=== PATIENT | female | born 2000 | race Caucasian/White ===

== ENCOUNTER 2018-05-01 10:20 | Emergency (ER) | payer OTHER ==
[2018-05-01 10:51] VITALS: BP 111/72
--- NOTE | 2018-05-01 11:14 | UC ---
Syncope/New Syncope HPI - HPI Summary HPI Summary: 17-year-old female presents for syncopal episode that occurred approximately 6: 30 this morning. States she she is unsure whether she was sitting or standing in the kitchen when she lost consciousness. Unsure of exact period of time she was unconscious however she reports that her roommates heard her fall and came immediately into the kitchen and found her on the floor awake. She remembers everything up to and immediately after the event. She is reporting a mild left- sided headache. Unsure if she hit her head. States she has had similar episodes in the past. Denies dizziness, vertigo, visual disturbances, neck pain , chest pain, palpitations, abdominal pain, nausea, vomiting, facial droop, difficulty or slurred speech, numbness, tingling, or weakness of extremities, or any other injury. - History Of Current Complaint Chief Complaint: UCHeadInjury Stated Complaint: HEAD INJURY Time Seen by Provider: 05/01/18 11:06 Hx Obtained From: Patient Hx Last Menstrual Period: apr 13 Pain Intensity: 2 - Allergies/Home Medications Allergies/Adverse Reactions: Allergies Allergy/AdvReac Type Severity Reaction Status Date / Time No Known Allergies Allergy Verified 05/01/18 10:42 Home Medications: Home Medications FLUoxetine CAP* [Prozac CAP*] 20 mg PO DAILY 05/01/18 [History Confirmed ] PMH/Surg Hx/FS Hx/Imm Hx Previously Healthy: Yes Psychological History: Depression - Surgical History Surgical History: None - Family History Known Family History: Positive: Non-Contributory - Social History Occupation: Student Lives: Dormitory/Roommates Alcohol Use: Weekly Substance Use Type: None Smoking Status (MU): Never Smoked Tobacco Review of Systems All Other Systems Reviewed And Are Negative: Yes Constitutional: Negative: Fever, Chills Eyes: Negative: Blurred Vision, Diplopia, Photophobia ENT: Positive: Negative Respiratory: Negative: Shortness Of Breath, Cough Cardiovascular: Negative: Palpitations, Chest Pain Gastrointestinal: Negative: Abdominal Pain, Vomiting, Diarrhea, Nausea Genitourinary: Negative: Dysuria, Hematuria, Frequency, Urgency Motor: Negative: Weakness Neurovascular: Negative: Decreased Sensation Musculoskeletal: Negative: Arthralgia, Decreased ROM Neurological: Positive: Headache. Negative: Weakness, Paresthesia, Numbness Psychological: Positive: Negative Is Patient Immunocompromised?: No Physical Exam - Summary Physical Exam Summary: GENERAL APPEARANCE: Well developed, well nourished, alert and cooperative, and appears to be in no acute distress. HEAD: Atraumatic. normocephalic. EYES: PERRL, EOM intact. Vision is grossly intact. EARS: External auditory canals and tympanic membranes clear, hearing grossly intact. NOSE: No nasal discharge. THROAT: Oral cavity and pharynx normal. No inflammation, swelling, exudate, or lesions. Teeth and gingiva in good general condition. NECK: Neck supple, non-tender without lymphadenopathy. CARDIAC: Normal S1 and S2. No S3, S4 or murmurs. Rhythm is regular. There is no peripheral edema, cyanosis or pallor. Extremities are warm and well perfused. Capillary refill is less than 2 seconds. Peripheral pulses intact. LUNGS: Clear to auscultation without rales, rhonchi, wheezing or diminished breath sounds. ABDOMEN: Positive bowel sounds. Soft, nondistended, nontender. No guarding or rebound. No masses or hepatosplenomegally. MUSKULOSKELETAL: ROM intact to all extremities. No joint erythema or tenderness. Normal muscular development. Normal gait. BACK: Examination of the spine reveals normal gait and posture, no spinal deformity or tenderness, decreased range of motion or muscular spasm. NEUROLOGICAL: CN II-XII intact. Strength and sensation symmetric and intact throughout. Reflexes 2+ throughout. Cerebellar testing normal. SKIN: Skin normal color, texture and turgor with no lesions or eruptions. PSYCHIATRIC: The patient was able to demonstrate good judgement and reason, without hallucinations, abnormal affect or abnormal behaviors during the examination. Triage Information Reviewed: Yes Vital Signs: Initial Vital Signs Temp 99.3 F 05/01/18 10:44 Pulse 83 05/01/18 10:44 Resp 16 05/01/18 10:44 BP 111/72 05/01/18 10:44 Pulse Ox 98 05/01/18 10:44 Vital Signs Reviewed: Yes Diagnostics - EKG Cardiac Rate: NL - Rate 77 Cardiac Rhythm: Sinus: Normal Ectopy: None ST Segment: Normal Summary of EKG Findings: NSR without ectopy, BASIM, or T-wave abnormalities. Syncope Course/Dx - Course Course Of Treatment: 17-year-old female presents for syncopal episode that occurred approximately 6:30 this morning. States she she is unsure whether she was sitting or standing in the kitchen when she lost consciousness. Unsure of exact period of time she was unconscious however she reports that her roommates heard her fall and came immediately into the kitchen and found her on the floor awake. She remembers everything up to and immediately after the event. She is reporting a mild left-sided headache. Unsure if she hit her head. States she has had similar episodes in the past. Denies dizziness, vertigo, visual disturbances, neck pain, chest pain, palpitations, abdominal pain, nausea, vomiting, facial droop, difficulty or slurred speech, numbness, tingling, or weakness of extremities, or any other injury. Last menstrual period was April 13, 2018. States she is on oral control and uses condoms consistently. Has not missed any of her doses of her oral control. Afebrile. Vital signs stable. Physical exam was unremarkable. Twelve-lead EKG showed a normal sinus rhythm without ectopy, ST elevations, or T-wave changes. I am recommending that she be further evaluated in the emergency room for syncopal event the ambulance. She is agreeable to evaluation in the emergency room however is electing to go by private vehicle. - Differential Dx/Diagnosis Differential Diagnosis/HQI/PQRI: Dysrhythmia, Seizure, Transient Ischemic Attack , Vasovagal Episode Provider Diagnosis: Syncope and collapse Discharge - Sign-Out/Discharge Documenting (check all that apply): Patient Departure All imaging exams completed and their final reports reviewed: No Studies - Discharge Plan Condition: Stable Disposition: HOME-RECOMMEND TO ED Patient Education Materials: Syncope (ED) Referrals: No Primary Care Phys,NOPCP [Primary Care Provider] - Additional Instructions: Your EKG in the clinic today was normal. Based on your history I am recommending that you be further evaluated in the emergency room. You have elected to go by private vehicle for evaluation. Go directly to the [facility] [place] emergency room for evaluation. - Billing Disposition and Condition Condition: STABLE Disposition: Home-Recommend to ED
== END 2018-05-01 11:42 | disposition home health service (06) ==
LOC: UCEAST 10:20
DX: R55 Syncope and collapse (principal); F32.9 Major depressive disorder, single episode, unspecified; Z79.899 Other long term (current) drug therapy; W19.XXXA Unspecified fall, initial encounter; Y92.000 Kitchen of unspecified non-institutional (private) residence as the place of occurrence of the external cause
CPT/HCPCS: 99202; G0463

== ENCOUNTER 2018-05-01 12:12 | Emergency (ER) | payer OTHER ==
--- NOTE | 2018-05-01 13:46 | ED ---
Syncope/Near Syncope - HPI Summary HPI Summary: A 17 y/o female presents to [facility] with a chief complaint of syncope at 07:00 . Per triage note, "Pt fell in her room at 0700, "I'm not sure what happened, I might have fainted, I don't remember anything but waking up with my roommates next to me" Pt states that when she woke up her head was against the chair. Pt c/o scalp pain to crown of head, though pt states that she picks her scalp." She rates her pain as a 3/10 in severity. She reports that she was walking around her woke up on her own and that her room when all of a sudden she fell and her head was pushed up against a chair. She reports that the floors are carpet and that she hit her head on the carpet. She claims that she woke up by herself, and her roomates were next to her because when she fell they heard a thump and came over. She denies any CP or SOB. She [place] Her LNMP was the first week in April 2018. She denies a chance of . She is on Prozac and gianvi control. - History Of Current Complaint Chief Complaint: EDSyncope Time Seen by Provider: 05/01/18 13:18 Hx Obtained From: Patient Onset/Duration: Sudden Onset, Resolved Timing: Intermittent Episode Lasting - 1 episode Context: Other - Roomates witnessed the patient on the carpet post syncope Activity At Onset: Other - walking Associated Head Trauma: No Aggravating Factor(s): Nothing Alleviating Factor(s): Nothing Associated Signs And Symptoms: Negative - SOB, Chest pain - Allergies/Home Medications Allergies/Adverse Reactions: Allergies Allergy/AdvReac Type Severity Reaction Status Date / Time No Known Allergies Allergy Verified 05/01/18 12:24 Home Medications: Home Medications Eth Estradiol/Drospirenone(NF) [Gianvi (NF)] 1 tab PO DAILY 05/01/18 [History Confirmed 05/01/18] PMH/Surg Hx/FS Hx/Imm Hx Endocrine/Hematology History: Denies: Hx Diabetes Cardiovascular History: Denies: Hx Hypercholesterolemia, Hx Hypertension Neurological History: Reports: Other Neuro Impairments/Disorders - An episode of syncope on a subway Psychiatric History: Reports: Hx Depression - Surgical History Surgery Procedure, Year, and Place: None Infectious Disease History: No Infectious Disease History: Denies: Traveled Outside the [place] in Last 30 Days - Family History Known Family History: Positive: Hypertension, Diabetes - Social History Occupation: Student Lives: Dormitory/Roommates Alcohol Use: Occasionally Substance Use Type: Reports: None Smoking Status (MU): Never Smoked Tobacco Review of Systems Negative: Fever Negative: Chest Pain Negative: Shortness Of Breath Positive: Syncope All Other Systems Reviewed And Are Negative: Yes Physical Exam - Summary Physical Exam Summary: GENERAL: Patient is a well-developed and nourished F who is lying comfortable in the stretcher. Patient is not in any acute respiratory distress. HEAD AND FACE: Normocephalic EYES: PERRLA, EOMI x 2. EARS: Hearing grossly intact. MOUTH: Oropharynx within normal limits. NECK: Supple, trachea is midline, no adenopathy, no JVD, no carotid bruit. CHEST: Symmetric, no tenderness at palpation LUNGS: Clear to auscultation bilaterally. No wheezing or crackles. CVS: Regular rate and rhythm, S1 and S2 present, no murmurs or gallops appreciated. ABDOMEN: Soft, non-tender. Bowel sounds are normal. No abdominal abnormal pulsations. EXTREMITIES: Full ROM in all major joints, no edema, no cyanosis or clubbing. NEURO: Alert and oriented x 3. No acute neurological deficits. Speech is normal and follows commands. SKIN: Dry and warm Neuro exam extended: Cranial nerves II-XII grossly intact, no dysmetria finger to nose, nml heel to rutherford Triage Information Reviewed: Yes Vital Signs On Initial Exam: Initial Vitals Temp Pulse Resp BP Pulse Ox 98.6 F 78 15 112/78 98 05/01/18 12:21 05/01/18 12:21 05/01/18 12:21 05/01/18 12:21 05/01/18 12:21 Vital Signs Reviewed: Yes Diagnostics - Vital Signs Vital Signs Temp Pulse Resp BP Pulse Ox 05/01/18 13:30 84 18 116/83 100 05/01/18 13:24 85 100 05/01/18 12:21 98.6 F 78 15 112/78 98 - Laboratory Result Diagrams: 05/01/18 13:44 05/01/18 13:44 Lab Statement: Any lab studies that have been ordered have been reviewed, and results considered in the medical decision making process. - Radiology CXR Radiology Interpretation Completed By: Radiologist Summary of Radiographic Findings: NO ACTIVE CARDIOPULMONARY DISEASE. ED physician has reviewed this imaging report. - EKG 13:35 Cardiac Rate: NL - 82 bpm EKG Rhythm: Sinus Rhythm Summary of EKG Findings: NSR at 82 bpm with no ischemic changes and normal intervals. Re-Evaluation - Re-Evaluation First Eval Re-Evaluation Time: 15:41 Change: Improved Comment: Patient is ready for discharge. Course/Dx Course Of Treatment: A 17 y/o female presents to [facility] with a chief complaint of syncope at 07:00 05/01/18. Workup is unremarkable. The physical exam was unremarkable. Lab results obtained and are WNL. The patient reports that she hit her head on a carpet floor. She is also completely neurologically intact and so there is no need for a head CT at this time. Her EKG showed NSR at 82 bpm with no ischemic changes and normal intervals. Her CXR was negative. I discussed results with patient and she reports feeling better. She is hemodynamically stable and safe for discharge. Strict return precautions given and she will otherwise follow up with her PCP. The patient will be discharged. She is agreeable with this plan. - Diagnoses Provider Diagnoses: Syncope Discharge - Sign-Out/Discharge Documenting (check all that apply): Patient Departure - DC Patient Received Moderate/Deep Sedation with Procedure: No - Discharge Plan Condition: Stable Disposition: HOME Referrals: Giana Mejia [Primary Care Provider] - (1-3 days) Additional Instructions: Follow up with your primary care physician in 1-3 days. RETURN TO THE EMERGENCY DEPARTMENT FOR CHANGING OR WORSENING SYMPTOMS. - Billing Disposition and Condition Condition: STABLE Disposition: Home - Attestation Statements Document Initiated by Maicoibe: Yes Documenting Scribe: Farhan Cm Provider For Whom Evangelina is Documenting (Include Credential): Mary Jo De Leon MD Scribe Attestation: Farhan Jon scribed for Mary Jo De Leon MD on 05/01/18 at 1759. Scribe Documentation Reviewed: Yes Provider Attestation: The documentation as recorded by the Farhan torres accurately reflects the service I personally performed and the decisions made by , James De Leon MD Status of Scribe Document: Viewed
[2018-05-01 13:59] LABS: ABS Basophils 0.1 10^3/ul (0-0.2); ABS Eosinophils 0.2 10^3/ul (0-0.6); ABS Lymphocytes 2.3 10^3/ul (1.0-4.8); ABS Monocytes 0.4 10^3/ul (0-0.8); ABS Neutrophils 3.9 10^3/ul (1.5-7.7); ABS Nucleated RBC 0 10^3/ul; Eosinophil % 2.5 %; Hematocrit 41 % (35-47); Hemoglobin 13.7 g/dl (12.0-16.0); Lymphocyte % 33.5 %; Mean Corpuscular HGB Conc 34 g/dl (31-36); Mean Corpuscular Hemoglobin 31 pg (27-31); Mean Corpuscular Volume 93 fL (80-97); Mean Platelet Volume 8.4 fL (7.4-10.4); Nucleated Red Blood Cells % 0.1; Platelet Count 255 10^3/ul (150-450); Red Blood Count 4.41 10^6/ul (4.00-5.40); Red Cell Distribution Width 13 % (10.5-15); White Blood Count 6.9 10^3/ul (3.5-10.8)
[2018-05-01 14:10] LABS: Activated Partial Thrombo Time 25.1 seconds (26.0-36.3); INR 0.94 (0.77-1.02)
[2018-05-01 14:21] LABS: ALT 7 U/L (7-52); AST 15 U/L (13-39); Albumin/Globulin Ratio 1.3 (1-3); Alkaline Phosphatase 37 U/L (34-104); Anion Gap 8 mmol/L (2-11); BUN/Creatinine Ratio 14.3 (8-20); Blood Urea Nitrogen 11 mg/dL (6-24); CO2 Carbon Dioxide 26 mmol/L (22-32); Calcium 9.6 mg/dL (8.6-10.3); Chloride 104 mmol/L (101-111); EGFR African American 116.8 (>60); EGFR Non-African American 96.6 (>60); Glucose 118 mg/dL (70-100); Sodium 138 mmol/L (135-145)
[2018-05-01 14:25] LABS: HCG Pregnancy < 0.60 mIU/mL
[2018-05-01 15:54] VITALS: BP 120/68
== END 2018-05-01 15:53 | disposition home or self-care (01) ==
LOC: ED 12:12
DX: R55 Syncope and collapse (principal); F32.9 Major depressive disorder, single episode, unspecified
CPT/HCPCS: 36415; 71045; 80053; 83605; 84484; 84702; 85025; 85379; 85610; 85730; 93005; 99282